=== PATIENT | male | born 1980 | race Caucasian/White ===

== ENCOUNTER → 2016-11-04 | Outpatient (CLI) | payer OTHER ==
[~2016-11-04] MED LIST: NOHOMEMEDS
== END | disposition home or self-care (01) ==
LOC: CDC 11:52
DX: Z01.810 Encounter for preprocedural cardiovascular examination (principal); M25.522 Pain in left elbow; M66.822 Spontaneous rupture of other tendons, left upper arm; R94.31 Abnormal electrocardiogram [ECG] [EKG]
CPT/HCPCS: 93000